=== PATIENT | female | born 1945 | race Caucasian/White ===

== ENCOUNTER → 2017-03-31 | Outpatient (CLI) | payer OTHER ==
[~2017-03-31] MED LIST: IOPAMIDOL (ISOVUE 370) 100 ML BTL IV ONE
== END ==
LOC: FIMAGING 15:53
PROVIDERS: ATTEND Thoracic Surgery (Cardiothoracic Vascular Surgery)
DX: I25.10 Atherosclerotic heart disease of native coronary artery without angina pectoris (principal); I51.7 Cardiomegaly; E04.1 Nontoxic single thyroid nodule; I65.22 Occlusion and stenosis of left carotid artery; I77.9 Disorder of arteries and arterioles, unspecified; I77.1 Stricture of artery; R91.8 Other nonspecific abnormal finding of lung field
CPT/HCPCS: 70498; 71010; 93880; Q9967

== ENCOUNTER 2017-04-01 07:15 | Inpatient (IN) | payer OTHER ==
[2017-04-01] MEDS ORDERED: niCARdipine/NACL 200 ML IV ONE (10:30)
[2017-04-01] MEDS ORDERED: INSULIN REGULAR HUMAN 100 UNIT in NS 100 ML IV ONE (10:30)
[2017-04-01] MEDS ORDERED: MANNITOL 20% 50 GM/250 ML BAG IV ONE (10:30)
[2017-04-01] MEDS ORDERED: VERAPAMIL 5 MG, NITROGLYCERIN 2.5 MG, HEPARIN 500 UNIT, SODIUM BICARBONATE 0.2 MEQ in L... MISC ONE (10:30)
[2017-04-01] MEDS ORDERED: NOREPINEPHRINE BITARTRATE 16 MG in NS 250 ML IV ONE (10:30)
[2017-04-01] MEDS ORDERED: PHENYLEPHRINE HCL 50 MG in NS 250 ML IV ONE (10:30)
[2017-04-01] MEDS ORDERED: ceFAZolin 2 GM/DEXTROSE 100 ML IV ONE ×2 (10:30→17:45)
[2017-04-01] MEDS ORDERED: LIDOCAINE 1% 5 ML SDV ID PRN (10:30)
[2017-04-01] MEDS ORDERED: MUPIROCIN 2% 22 GM OINT NS SCH (10:30)
[2017-04-01] MEDS ORDERED: AMINOCAPROIC ACID 5 GM/20 ML VIAL IV ONE (10:30)
[2017-04-01] MEDS ORDERED: SODIUM BICARBONATE 20 MEQ, LIDOCAINE 1% 10 ML in NORMOSOL-R 1,000 ML MISC ONE (10:30)
[2017-04-01] MEDS ORDERED: CITRATE DEXTROSE SOLN 500 ML BAG MISC ONE (10:30)
[2017-04-01] MEDS ORDERED: HEPARIN/DEXTROSE 25,000 UNIT/500 ML BAG ONE (13:49)
[2017-04-01] MEDS ORDERED: HEPARIN 10,000 UNIT/10 ML MDV IVP ONE (13:59)
[2017-04-01] MEDS ORDERED: HEPARIN 10,000 UNIT/10 ML MDV IVP PRN (13:59)
[2017-04-01] MEDS ORDERED: HEPARIN/DEXTROSE 500 ML IV SCH (14:00)
[2017-04-01 14:28] LABS: % IMMATURE GRANULYOCYTES 0.4 % (0.0-1.1); ABSOLUTE IMMATURE GRANULOCYTES 0.04 10^3/uL (0.00-0.10); ADD DIFF? NO; ADD MORPH? YES; ADD SCAN? NO; ATYPICAL LYMPHOCYTE FLAG 0 (0-99); FRAGMENT RBC FLAG 20 (0-99); HEMATOCRIT 44.2 % (38.0-47.0); HEMOGLOBIN 14.6 g/dL (12.6-16.3); LEFT SHIFT FLG 0 (0-99); LIPEMIA HEMOLYSIS FLAG 80 (0-99); MEAN CELL HEMOGLOBIN 27.1 pg (27.9-34.1); MEAN PLATELET VOLUME 11.1 fL (8.7-11.7); PLATELET CLUMPS FLAG 0 (0-99); PLATELET COUNT 225 10^3/uL (150-400); RED BLOOD CELL COUNT 5.39 10^6/uL (4.18-5.33)
[2017-04-01 14:32] LABS: RED CELL DISTRIBUTION WIDTH 20.7 % (11.5-15.2)
[2017-04-01 15:20] LABS: INR 1.07 (0.83-1.16); PROTIME(PATIENT) 13.8 SEC (12.0-15.0)
[2017-04-01 15:22] LABS: APTT 47.2 SEC (23.0-38.0)
[2017-04-01] MEDS: LR 1,000 ML IV SCH ×2 (15:30→17:36)
[2017-04-01 15:34] LABS: ANION GAP 12 mEq/L (8-16); CALCIUM 9.1 mg/dL (8.5-10.4); CARBON DIOXIDE 23 mEq/l (22-31); CHLORIDE 106 mEq/L (97-110); CREATININE 0.6 mg/dL (0.6-1.0); GLOMERULAR FILTRATION RATE > 60; GLUCOSE 96 mg/dL (70-100); POTASSIUM 3.8 mEq/L (3.5-5.2); SODIUM 141 mEq/L (134-144)
[2017-04-01 16:41] LABS: HYPOCHROMIA 1+; MICROCYTES 1+; POLYCHROMASIA 1+
[2017-04-01 16:42] LABS: KERATOCYTES 1+; PLATELET ESTIMATE ADEQUATE (ADEQ)
[2017-04-01] MEDS ORDERED: CEFAZOLIN 2 GM/DEXTROSE/100 ML BAG IV ONE (17:33)
--- NOTE | 2017-04-01 17:33 | PDGENHP ---
History & Physical Chief Complaint: 72 female with critical left carotid stenosis > 90%, asymptomatic History of Present Illness: in need of cabg for chf but no angina/ found to have critical bilat carotid stenoses, R>L. will proceed with left CEA prior to CABG which has been postponed. risks and options fully discussed Pertinent Past, Social, Family History: PMH: , CHF. ROS - ON 10 PT REVIEW EXCEPT HTN AND CHF. ALL: NONE. MEDS: LASIX, ALDACTONE, LISINOPRIL, ASA , PLAVIX. FAM HX: NONCONTRIB Relevant Physical Exam: ALERT, HEALTHY 72 FEMALE. HEENT: BRUIT ON LEFT, NONICTERIC, NO ADENOPATHYNECK SUPPLE. CHEST: CLEAR. COR: RR WO M. ABD SOFT WO MASSES. EXREM: FULL PULSES, FULL ROM, NO EDEMA. NEURO PHYSIOLOGIC. SKIN OK Cardiorespiratory Assessment: IMP: CRITICAL LEFT CAROTID STENOSIS, ASYMPTOMATIC / ALSO SIGNIFICANT STENOSIS ON THE RIGHT IN PT WITH WELL TREATED CHF. PLAN: LEFT CEA WITH EEG/ RISKS AND OPTIONS FULLY DISCUSSED
[2017-04-01] MEDS ORDERED: BACITRACIN ZINC 14.2 GM OINTTUBE TP ONE (17:50)
[2017-04-01] MEDS ORDERED: THROMBIN (BOVINE) 20,000 UNIT SPRAY TP ONE (17:50)
[2017-04-01] MEDS ORDERED: BUPIVACAINE 0.5% 30 ML SDV ONE (17:50)
[2017-04-01] MEDS ORDERED: PROPOFOL 200 MG/20 ML VIAL ONE (18:21)
[2017-04-01] MEDS ORDERED: MIDAZOLAM 2 MG/2 ML VIAL ONE (18:21)
[2017-04-01] MEDS ORDERED: fentaNYL 100 MCG/2 ML INJ ONE (18:21)
[2017-04-01] MEDS ORDERED: ONDANSETRON 4 MG/2 ML VIAL ONE (18:27)
[2017-04-01] MEDS ORDERED: METOCLOPRAMIDE 10 MG/2 ML VIAL ONE (18:27)
[2017-04-01] MEDS ORDERED: ROCURONIUM 50 MG/5 ML VIAL ONE (18:27)
[2017-04-01] MEDS ORDERED: PHENYLEPHRINE HCL 100 MCG/ML SYR ONE (18:44)
[2017-04-01] MEDS ORDERED: HEPARIN 10,000 UNIT/10 ML MDV ONE (18:44)
--- NOTE | 2017-04-01 19:01 | PDANEPAE ---
ANE Past Medical History - Cardiovascular History Hx Hypertension: Yes Hx Coronary Artery / Peripheral Vascular Disease: Yes Hx CHF / Valvular Disease: Yes - Pulmonary History Hx Sleep Apnea: No Sleep Apnea Screening Result - Last Documented: Positive - Endocrine History Hx Diabetes: No ANE Review of Systems Review of Systems: ANE Patient History - Allergies Allergies/Adverse Reactions: No Known Allergies Allergy (Unverified 03/31/17 17:37) - Home Medications Home Medications: Clopidogrel Bisulfate [Plavix (*)] 75 mg PO DAILY 04/01/17 [Last Taken 03/28/17] Furosemide [Lasix 40 MG (*)] 40 mg PO DAILY 04/01/17 [Last Taken 03/28/17] Lisinopril [Zestril 40 mg (*)] 40 mg PO DAILY 04/01/17 [Last Taken 03/31/17] Multivitamins [Multivitamin (*)] 1 each PO DAILY 04/01/17 [Last Taken Unknown] [place]-3 Fatty Acids [Fish Oil 1000 mg (*)] 1,000 mg PO DAILY 04/01/17 [Last Taken Unknown] Spironolactone [Aldactone 25 MG (*)] 25 mg PO BID 04/01/17 [Last Taken 03/28/17 21:00] - NPO status NPO Since - Liquids (Date): 04/01/17 NPO Since - Liquids (Time): 00:00 NPO Since - Solids (Date): 04/01/17 NPO Since - Solids (Time): 00:00 - Smoking Hx Smoking Status: Former smoker ANE Labs/Vital Signs - Labs Result Diagrams: 04/01/17 14:00 04/01/17 14:50 - Vital Signs Blood Pressure: 132/77 Heart Rate: 77 Respiratory Rate: 18 O2 Sat (%): 91 Height: 160.02 cm Weight: 53.4 kg ANE Physical Exam - Airway Mallampati Score: Class 1 Mouth exam: poor dentition, dentures - ASA Status ASA Status: III ANE Anesthesia Plan Anesthesia Plan: general endotracheal anesthesia Lines/Monitors: arterial line
[2017-04-01] MEDS ORDERED: ONDANSETRON 4 MG/2 ML VIAL IVP PRN (19:39)
[2017-04-01] MEDS ORDERED: HYDROmorphONE/DILAUDID 1 MG/ML INJ IVP PRN (19:39)
[2017-04-01] MEDS ORDERED: OXYCODONE/APAP 5/325 TAB PO PRN (19:39)
[2017-04-01] MEDS ORDERED: ENALAPRILAT DIHYDRATE 1.25 MG/ML VIAL IVP PRN (19:40)
[2017-04-01] MEDS ORDERED: PROTAMINE SULFATE 50 MG/5 ML VIAL IVP ONE (19:53)
[2017-04-01] MEDS ORDERED: SUGAMMADEX SODIUM 200 MG/2 ML VIAL IVP ONE (20:01)
[2017-04-01] MEDS ORDERED: NALOXONE HCL 0.4 MG/ML INJ IVP PRN (20:34)
[2017-04-01] MEDS ORDERED: fentaNYL 100 MCG/2 ML INJ IVP PRN (20:34)
[2017-04-01] MEDS ORDERED: LR 500 ML IV PRN (20:34)
--- NOTE | 2017-04-01 20:35 | POSTANESTH ---
Post Anesthetic Evaluation Cardiovascular Status: Normal, Stable Respiratory Status: Normal, Stable Level of Consciousness/Mental Status: Can Participate in Eval Pain Control: Adequate, Prn Tx Ordered Nausea/Vomiting Control: Adequate, Prn Tx Ordered Complications Possibly Related to Anesthesia: None Noted
[2017-04-01] MEDS: DOCUSATE SODIUM 100 MG CAP PO SCH (21:34)
[2017-04-01] MEDS ORDERED: D5W 1/2 NS W/ 20 KCl/L 1,000 ML IV SCH (21:45)
[2017-04-02 05:37] LABS: HEMATOCRIT 39.6 % (38.0-47.0); HEMOGLOBIN 12.9 g/dL (12.6-16.3)
[2017-04-02 05:45] LABS: ANION GAP 8 mEq/L (8-16); CARBON DIOXIDE 25 mEq/l (22-31); CHLORIDE 106 mEq/L (97-110); CREATININE 0.6 mg/dL (0.6-1.0); GLOMERULAR FILTRATION RATE > 60; GLUCOSE 105 mg/dL (70-100); SODIUM 139 mEq/L (134-144)
[2017-04-02 06:02] VITALS: O2SAT 93
--- NOTE | 2017-04-02 06:05 | GOP ---
[f rep st] OPERATIVE REPORT DATE OF OPERATION: 04/01/2017 SURGEON: Zachariah Miller MD PLASTIC PANEL INSTALLER: Julio Bliss MD. and Jamila Villatoro, PAC. ANESTHESIOLOGIST: Sarmda Elder MD. PREOPERATIVE DIAGNOSIS: Critical left carotid stenosis. POSTOPERATIVE DIAGNOSIS: Critical left carotid stenosis plus benign cervical node. PROCEDURE PERFORMED: 1. Left carotid endarterectomy with EEG monitoring and patch angioplasty. 2. Cervical node biopsy. FINDINGS: Patient was found to have a 1.5 cm node in the jugulodigastric area, which was sent out fo r evaluation, but appeared to be a reactive node. She had a very tight stenosis of the origin of the left internal carotid artery with a large calcified plaque. She had reasonable backflow from the in ternal carotid artery and no EEG changes during the procedure. She awoke neurologically intact. ESTIMATED BLOOD LOSS: Was less than 50 cc. DESCRIPTION OF PROCEDURE: The patient was taken to the operating room where she received satisfactor y general endotracheal anesthesia by Dr. Elder. She was systemically heparinized prior to induction of anesthesia. She was prepped and draped in usual sterile fashion with continuous EEG monitoring. Incision was made along the anterior border of the sternocleidomastoid muscle. Dissection was christin d down through the platysma and subcutaneous tissue into the cervical fascia. Common facial vein was identified, multiply ligated and divided, exposing the carotid arterial tree. Dissection extended u p along the internal carotid artery. The digastric tendon was divided for adequate superior exposure . The internal carotid, external carotid and common carotid arteries were all dissected free and con trolled with vessel loops. After adequate exposure was achieved, additional heparin was given and af ter adequate circulation time, the vessels were occluded with vessel loops. Arteriotomy was then mad e in the common carotid artery, extended up through the calcified plaque and into a good normal porti on of the internal carotid artery. Good backflow was present. There were no EEG changes. Expeditio us endarterectomy was then done, removing the plaque from the origin of the internal carotid and exte rnal carotid arteries. It was removed. All debris was removed. All vessels were back flushed. A G ore-Kennedy patch was placed over the arteriotomy site and sutured in place with a running Hemashield 7 s uture. Flow was first established through the external carotid artery and then through the internal carotid. Suture line had some needle hole bleeding which responded to reversal of the heparin with p rotamine and some topical spray thrombin. Hemostasis was achieved and the wound was irrigated and it was then closed in layers using 3-0 Vicryl for the cervical fascia and 3-0 Vicryl for the platysma a nd subcutaneous tissue and a 3-0 Monocryl subcuticular stitch for the skin. All layers were infiltra nathalie with 0.25% Marcaine and sprayed with topical thrombin. A couple of additional Prolene interrupte d sutures were placed in the skin for control of small skin bleeders. The wound was dressed. She aw janeth neurologically intact, moving all extremities and responding to commands, was [place] [facility] [place] in satisfactory condition. There were no complications. /[id number]/MODL
[2017-04-02 07:33] VITALS: PULSE 87; RESP 16
[2017-04-02] MEDS: DOCUSATE SODIUM 100 MG CAP PO SCH (08:31)
[2017-04-02] MEDS ORDERED: MULTIVITAMINS 1 EACH TAB PO SCH (09:00)
[2017-04-02] MEDS ORDERED: LISINOPRIL 40 MG TAB PO SCH (09:00)
[2017-04-02] MEDS ORDERED: OMEGA-3 FATTY ACIDS 1,000 MG CAP PO SCH (09:00)
[2017-04-02] MEDS ORDERED: ASPIRIN EC 81 MG TAB PO SCH (09:00)
--- NOTE | 2017-04-02 09:15 | SOAPPROG ---
SOAP Progress Note Assessment/Plan: Assessment: 72yo female POD #1 s/p L CEA with patch angioplasty and cervical LN biopsy. Recovering well. Regular diet Ambulate Pain control May shower Leave wound to air Resume home meds of Plavix, lasix, and spironolactone tomorrow Dispo: to home today S: No complaints today. Reports minimal pain. Tolerating diet. O: Lying in bed NAD MMM Lungs CTAB, no increased WOB RRR, No bruits CN II-XII intact Incision C/D/I with suture and skin glue in place Objective: Vital Signs Temp Pulse Resp BP Pulse Ox 37.2 C 87 16 141/84 H 93 04/02/17 07:32 04/02/17 07:32 04/02/17 07:32 04/02/17 07:32 04/02/17 07:32 Laboratory Results 04/02/17 05:25 04/02/17 05:25 04/01/17 04/02/17 04/03/17 05:59 05:59 05:59 Intake Total 1454 Output Total 50 Balance 1404 PT 13.8 SEC (12.0-15.0) 04/01/17 14:50 INR 1.07 (0.83-1.16) 04/01/17 14:50 ICD10 Worksheet Patient Problems: Problems Problem Status Onset CAD, multiple vessel Acute Carotid artery disease Acute Diabetes mellitus Acute CHF (NYHA class II, ACC/AHA stage C) Chronic Emphysema/COPD Chronic Ischemic cardiomyopathy Chronic Tobacco abuse Chronic
[2017-04-02 13:12] VITALS: BP 136/78; TEMP 98.6
[2017-04-02] MEDS ORDERED: PNEUMOC 13-VAL CONJ-DIP CRM/PF 0.5 ML SYR IM ONE (13:22)
[2017-04-02] MEDS ORDERED: FLU VACC QS 2017-18 (3YR+)/PF 0.5 ML SYR (FLUARIX QUAD) IM ONE (13:22)
== END 2017-04-02 13:45 | disposition home or self-care (01) | DRG 39 ==
LOC: UNDOADMIN 10:18 → F2W 10:18 → F2N 10:49
PROVIDERS: ADMIT Surgery; ATTEND Surgery
PROC: 03CL0ZZ Extirpation of Matter from Left Internal Carotid Artery, Open Approach (ICD-10-PCS; principal; 2017-04-01 15:30)
PROC: 07B20ZX Excision of Left Neck Lymphatic, Open Approach, Diagnostic (ICD-10-PCS; principal; 2017-04-01 15:30)
DX: I65.22 Occlusion and stenosis of left carotid artery (principal); I50.9 Heart failure, unspecified; I11.0 Hypertensive heart disease with heart failure; R59.9 Enlarged lymph nodes, unspecified; Z79.02 Long term (current) use of antithrombotics/antiplatelets; Z23 Encounter for immunization
CPT/HCPCS: C1768; G0008; G0009; J0690; J1644; J1815; J2250; J2370; J2405; J2704; J2720; J2765; J3010

== ENCOUNTER 2017-04-29 06:09 | Inpatient (IN) | payer OTHER ==
[~2017-04-29 06:09] MED LIST changes: -IOPAMIDOL (ISOVUE 370) 100 ML BTL IV ONE; +ceFAZolin 2 GM/DEXTROSE 100 ML IV ONE
[2017-04-29] MEDS ORDERED: LIDOCAINE 1% 2 ML INJ ID PRN (06:48)
[2017-04-29] MEDS ORDERED: LR 1,000 ML IV ONE (06:48)
[2017-04-29] MEDS ORDERED: BACITRACIN ZINC 14.2 GM OINTTUBE TP ONE (07:21)
[2017-04-29] MEDS ORDERED: BUPIVACAINE 0.5% 30 ML SDV ONE (07:22)
--- NOTE | 2017-04-29 07:29 | PDHPUP ---
History & Physical Update H&P update statement: This history and physical update is based on an assessment of the patient which was completed after admission or registration (within 24 hours), but prior to the surgery/procedure. H&P update: H&P reviewed & patient examined, no change in patient's condition since H&P completed
--- NOTE | 2017-04-29 07:38 | PDANEPAE ---
ANE History of Present Illness 72 yo F with 70% stenosis RCA here for CEA ANE Past Medical History - Cardiovascular History Hx Hypertension: Yes Hx Coronary Artery / Peripheral Vascular Disease: Yes Hx CHF / Valvular Disease: Yes - Pulmonary History Hx COPD: Yes Hx Asthma/Reactive Airway Disease: No Hx Recent Upper Respiratory Infection: No Hx Oxygen in Use at Home: No Hx Sleep Apnea: No Sleep Apnea Screening Result - Last Documented: Negative - Neurologic History Hx Cerebrovascular Accident: No Hx Seizures: No Hx Dementia: No - Endocrine History Hx Diabetes: No - Renal History Hx Renal Disorders: No - Liver History Hx Hepatic Disorders: No - Neurological & Psychiatric Hx Hx Neurological and Psychiatric Disorders: No - Cancer History Hx Cancer: No - Congenital Disorder History Hx Congenital Disorders: No - GI History Hx Gastrointestinal Disorders: No - Other Health History Other Health History: NEG - Chronic Pain History Chronic Pain: No - Surgical History Prior Surgeries: L ENDARTERECTOMY. X2 ANE Review of Systems Review of Systems: - Exercise capacity Exercise capacity: limited by disability METS (RN): 4 METS ANE Patient History - Allergies Allergies/Adverse Reactions: No Known Allergies Allergy (Unverified 03/31/17 17:37) - Home Medications Home medications: home medication list seen and reviewed Home Medications: Lisinopril [Zestril 40 mg (*)] 40 mg PO DAILY 04/01/17 [Last Taken 04/28/17 10: 00] Multivitamins [Multivitamin (*)] 1 each PO DAILY 04/01/17 [Last Taken 04/28/17 10:00] [place]-3 Fatty Acids [Fish Oil 1000 mg (*)] 1,000 mg PO DAILY 04/01/17 [Last Taken 04/28/17 10:00] Ascorbic Acid [Vitamin C 500 mg (*)] 1,000 mg PO DAILY 04/28/17 [Last Taken 04/06 10:00] Atorvastatin Calcium [Lipitor 40 mg (*)] 40 mg PO DAILY 04/28/17 [Last Taken 04/06 10:00] Carvedilol [Coreg (*)] 12.5 mg PO BIDMEAL 04/28/17 [Last Taken 04/28/17 17:30] Cholecalciferol Vit D3 [Vitamin D3 (*)] 1,000 units PO DAILY 04/28/17 [Last Taken 04/28/17 10:00] Cyanocobalamin [Vitamin B12 (*)] 1,000 mcg PO DAILY 04/28/17 [Last Taken 10:00] Herbals/Supplements -Info Only 1 ea PO DAILY 04/28/17 [Last Taken 04/28/17 10:00 ] - NPO status NPO Status: no food or drink >8 hours - Anes Hx Anes Hx: no prior problems - Smoking Hx Smoking Status: Former smoker - Alcohol Use Alcohol Use: None - Family Anes Hx Family Anes Hx: none Family Hx Anesthesia Complications: NEG ANE Labs/Vital Signs - Vital Signs Vital Signs: reviewed preoperatively; see RN documention for details Height: 157.48 cm Weight: 52.163 kg ANE Physical Exam - Airway Neck exam: FROM Mallampati Score: Class 3 Mouth exam: poor dentition, dentures Mouth image: 1 - dentures 2 - missing 3 - missing - Pulmonary Pulmonary: no respiratory distress - Cardiovascular Cardiovascular: regular rate and rhythym - ASA Status ASA Status: III ANE Anesthesia Plan Anesthesia Plan: general endotracheal anesthesia Lines/Monitors: arterial line
[2017-04-29] MEDS ORDERED: fentaNYL 100 MCG/2 ML INJ ONE (07:49)
[2017-04-29] MEDS ORDERED: PROPOFOL 200 MG/20 ML VIAL ONE ×2 (07:50)
[2017-04-29] MEDS ORDERED: KETAMINE 100 MG/10 ML SYR ONE (07:51)
[2017-04-29] MEDS ORDERED: REMIFENTANIL HCL 1 MG VIAL ONE (07:51)
[2017-04-29] MEDS ORDERED: PROPOFOL/EMULSION 500 MG/50 ML BOTTLE IV ONE (07:52)
[2017-04-29] MEDS ORDERED: ROCURONIUM 100 MG/10 ML VIAL ONE (07:55)
[2017-04-29] MEDS ORDERED: LIDOCAINE 2% 100 MG/5 ML SYR ONE (07:56)
[2017-04-29] MEDS ORDERED: PHENYLEPHRINE HCL 100 MCG/ML SYR ONE ×2 (08:39)
[2017-04-29] MEDS ORDERED: DEXAMETHASONE 4 MG/ML VIAL ONE (09:16)
[2017-04-29] MEDS ORDERED: ONDANSETRON 4 MG/2 ML VIAL ONE (09:16)
[2017-04-29] MEDS ORDERED: fentaNYL 100 MCG/2 ML INJ IVP PRN (09:27)
[2017-04-29] MEDS ORDERED: NALOXONE HCL 0.4 MG/ML INJ IVP PRN (09:27)
[2017-04-29] MEDS ORDERED: ONDANSETRON 4 MG/2 ML VIAL IVP PRN ×2 (09:27→09:57)
[2017-04-29] MEDS ORDERED: HYDROmorphONE/DILAUDID 1 MG/ML INJ IVP PRN ×2 (09:27→09:57)
[2017-04-29] MEDS ORDERED: PROTAMINE SULFATE 50 MG/5 ML VIAL IVP ONE (09:30)
[2017-04-29] MEDS ORDERED: THROMBIN (BOVINE) 5,000 UNIT VIAL TP ONE (09:37)
[2017-04-29] MEDS ORDERED: OXYCODONE/APAP 5/325 TAB PO PRN (09:57)
--- NOTE | 2017-04-29 09:57 | POSTOPPROG ---
Post Op Note Date of Operation: 04/29/17 Surgeon: Zachariah Miller Supervisor Maintenance: Jamila Villatoro Anesthesiologist: Jamie Yeager Anesthesia: GET(General Endotracheal) Pre-op Diagnosis: critical R carotid stenosis Post-op Diagnosis: same Procedure: R CEA c EEG monitoring and patch closure Findings: tight calcified plaque, small vessels Inf/Abcess present in the surg proc area at time of surgery?: No EBL: 50-100 Complications: none Specimen(s): plaque to pathology
[2017-04-29] MEDS ORDERED: ENALAPRILAT DIHYDRATE 1.25 MG/ML VIAL IVP PRN (10:00)
[2017-04-29] MEDS: D5W 1/2 NS 1,000 ML IV SCH ×2 (11:29→21:48)
[2017-04-29] MEDS ORDERED: CARVEDILOL 6.25 MG TAB PO SCH (18:00)
--- NOTE | 2017-04-29 19:53 | SOAPPROG ---
SOLIV Progress Note Assessment/Plan: Assessment: POSTOP ALERT AND NEUROLOGICALLY INTACT / WOUND OKAY / VITAL SIGNS STABLE Plan: HOME IN THE A.M. 04/29/17 19:52 Objective: Vital Signs Temp Pulse Resp BP Pulse Ox 37.0 C 68 20 111/64 94 04/29/17 11:19 04/29/17 18:00 04/29/17 18:00 04/29/17 18:00 04/29/17 18:00 04/28/17 04/29/17 04/30/17 05:59 05:59 05:59 Intake Total 2078 Output Total 415 Balance 1663 ICD10 Worksheet Patient Problems: Problems Problem Status Onset CAD, multiple vessel Acute Carotid artery disease Acute Diabetes mellitus Acute CHF (NYHA class II, ACC/AHA stage C) Chronic Emphysema/COPD Chronic Ischemic cardiomyopathy Chronic Tobacco abuse Chronic
--- NOTE | 2017-04-29 21:32 | POSTANESTH ---
Post Anesthetic Evaluation Cardiovascular Status: Normal, Stable, Similar to Pre-Op Cond Respiratory Status: Normal, Stable, Similar to Pre-op Cond. Level of Consciousness/Mental Status: Can Participate in Eval, Alert and Oriented Pain Control: Adequate, Prn Tx Ordered Nausea/Vomiting Control: Adequate, Prn Tx Ordered Complications Possibly Related to Anesthesia: None Noted
[2017-04-30 04:51] LABS: HEMATOCRIT 34.2 % (38.0-47.0); HEMOGLOBIN 10.9 g/dL (12.6-16.3)
[2017-04-30] MEDS: D5W 1/2 NS 1,000 ML IV SCH (04:55)
[2017-04-30 05:06] LABS: ANION GAP 8 mEq/L (8-16); CALCIUM 8.9 mg/dL (8.5-10.4); CARBON DIOXIDE 27 mEq/l (22-31); CHLORIDE 108 mEq/L (97-110); CREATININE 0.6 mg/dL (0.6-1.0); GLOMERULAR FILTRATION RATE > 60; GLUCOSE 129 mg/dL (70-100); SODIUM 143 mEq/L (134-144)
[2017-04-30 07:23] VITALS: BP 139/80; PULSE 73; RESP 14; TEMP 98.4
[2017-04-30 08:41] VITALS: O2SAT 76
[2017-04-30] MEDS ORDERED: ATORVASTATIN CALCIUM 40 MG TAB PO SCH (09:00)
[2017-04-30] MEDS ORDERED: ASPIRIN EC 81 MG TAB PO SCH (09:00)
[2017-04-30] MEDS ORDERED: LISINOPRIL 40 MG TAB PO SCH (09:00)
--- NOTE | 2017-04-30 09:05 | SOAPPROG ---
SOAP Progress Note Assessment/Plan: Assessment/Plan: 72 Y F s/p CEA, POD#1. Doing well. Neuro exam intact. BP stable. Wounds clean and intact. I called pt's security services specialist's office, Dr. Roberts in [place], re: plavix and coreg. Pt doesn't recall being on coreg. Will have her contact their office as they say Dr. Roberts does have this listed as a medicine for her. Dr. Roberts does not have the patient on plavix--has been on this for her carotid disease. Will d /c plavix and change to ASA 325mg. S: Minimal pain. Eating fine. Denies weakness. Feels ready to go home. O: alert, nad tongue midline, pupils equal, round inc cdi ctab rrr abd soft neuro grossly intact 04/30/17 08:54 Objective: Vital Signs Temp Pulse Resp BP Pulse Ox 36.9 C 73 14 139/80 H 76 L 04/30/17 07:22 04/30/17 07:22 04/30/17 07:22 04/30/17 07:22 04/30/17 08:40 Laboratory Results 04/30/17 04:42 04/30/17 04:42 04/29/17 04/30/17 05/01/17 05:59 05:59 05:59 Intake Total 3328 Output Total 415 Balance 2913 ICD10 Worksheet Patient Problems: Problems Problem Status Onset CAD, multiple vessel Acute Carotid artery disease Acute Diabetes mellitus Acute CHF (NYHA class II, ACC/AHA stage C) Chronic Emphysema/COPD Chronic Ischemic cardiomyopathy Chronic Tobacco abuse Chronic
--- NOTE | 2017-04-30 11:39 | ASDISCHSUM ---
Discharge Information Plan Status:Home with No Needs Medically Cleared to Leave:04/30/2017 Discharge Date:04/30/2017 11:33 AM CM D/C Disposition:Home, Routine, Self-Care ADT D/C Disposition:Home, Routine, Self-Care Projected Discharge Date:04/30/2017 11:33 AM Transportation at D/C:Family Discharge Delay Reason: Follow-Up Date:04/30/2017 11:33 AM Discharge Slot: Final Diagnosis: Placement Information Patient Contact Information Contact Name:ELLY Relationship:Eligio Address: Work Phone: City: [facility] Phone: State/[place] Code: Email: Financial Information Financial Class:[facility] Primary Plan Desc:MEDICARE INPATIENT Primary Plan Number:[id number] Secondary Plan Desc: Secondary Plan Number: Assessment Information Intervention Information
[2017-05-01] MEDS ORDERED: ENOXAPARIN 40 MG/0.4 ML SYR SC SCH (09:00)
== END 2017-04-30 11:33 | disposition home or self-care (01) | DRG 39 ==
LOC: F3N 06:09 → F2N 11:03 → F2W 21:21
PROVIDERS: ADMIT Surgery; ATTEND Surgery
PROC: 03CK0ZZ Extirpation of Matter from Right Internal Carotid Artery, Open Approach (ICD-10-PCS; principal; 2017-04-29 08:00)
DX: I65.21 Occlusion and stenosis of right carotid artery (principal); I25.10 Atherosclerotic heart disease of native coronary artery without angina pectoris; I10 Essential (primary) hypertension; J44.9 Chronic obstructive pulmonary disease, unspecified; I50.9 Heart failure, unspecified; Z79.02 Long term (current) use of antithrombotics/antiplatelets
CPT/HCPCS: C1768; J0690; J1100; J1644; J2001; J2370; J2405; J2704; J2720; J3010

== ENCOUNTER 2017-05-23 05:39 | Inpatient (IN) | payer OTHER ==
[2017-05-23] MEDS ORDERED: SODIUM BICARBONATE 20 MEQ, LIDOCAINE 1% 10 ML in NORMOSOL-R 1,000 ML MISC ONE (06:00)
[2017-05-23] MEDS ORDERED: PHENYLEPHRINE HCL 50 MG in NS 250 ML IV ONE (06:00)
[2017-05-23] MEDS ORDERED: INSULIN REGULAR HUMAN 100 UNIT in NS 100 ML IV ONE (06:00)
[2017-05-23] MEDS ORDERED: niCARdipine/NACL 200 ML IV SCH (06:00)
[2017-05-23] MEDS ORDERED: AMINOCAPROIC ACID 5 GM/20 ML VIAL IV ONE (06:00)
[2017-05-23] MEDS ORDERED: CITRATE DEXTROSE SOLN 500 ML BAG MISC ONE (06:00)
[2017-05-23] MEDS ORDERED: ceFAZolin 2 GM/SWFI 2 GM/20 ML SYR IVP ONE (06:00)
[2017-05-23] MEDS ORDERED: MANNITOL 25% 12.5 GM/50 ML VIAL IVP ONE (06:00)
[2017-05-23] MEDS ORDERED: MUPIROCIN 2% 22 GM OINT NS ONE (06:00)
[2017-05-23] MEDS ORDERED: NOREPINEPHRINE BITARTRATE 16 MG in NS 250 ML IV ONE (06:00)
[2017-05-23] MEDS ORDERED: VERAPAMIL 5 MG, NITROGLYCERIN 2.5 MG, HEPARIN 500 UNIT, SODIUM BICARBONATE 0.2 MEQ in L... MISC ONE (06:00)
[2017-05-23] MEDS ORDERED: MILRINONE/DEXTROSE/100 ML BAG IV ONE (06:18)
[2017-05-23] MEDS ORDERED: CALCIUM CHLORIDE 1 GM/10 ML INJ ONE ×2 (06:18→06:31)
[2017-05-23] MEDS ORDERED: PROTAMINE SULFATE 50 MG/5 ML VIAL IVP ONE (06:18)
[2017-05-23] MEDS ORDERED: POTASSIUM Cl (KCl) 20 MEQ/50 ML BAG IV ONE (06:19)
[2017-05-23] MEDS ORDERED: DOPamine/DEXTROSE/250 ML BAG IV ONE (06:19)
[2017-05-23] MEDS ORDERED: niCARdipine/NACL/200 ML BAG IV ONE (06:19)
[2017-05-23] MEDS ORDERED: AMIODARONE HCL 150 MG/3 ML VIAL ONE ×2 (06:19→06:31)
[2017-05-23] MEDS ORDERED: ADENOSINE 6 MG/2 ML VIAL ONE (06:19)
[2017-05-23] MEDS ORDERED: AMINOCAPROIC ACID 5 GM/20 ML VIAL ONE ×2 (06:19→06:31)
[2017-05-23] MEDS ORDERED: NA BICARBONATE 50 MEQ/50 ML VIAL ONE (06:19)
[2017-05-23] MEDS ORDERED: HEPARIN 10,000 UNIT/10 ML MDV ONE ×2 (06:20→06:32)
[2017-05-23] MEDS ORDERED: ceFAZolin 1 GM VIAL ONE (06:20)
[2017-05-23] MEDS ORDERED: MINERAL OIL 10 ML VIAL ONE (06:26)
[2017-05-23] MEDS ORDERED: PAPAVERINE HCL 60 MG/2 ML SDV ONE (06:27)
[2017-05-23] MEDS ORDERED: VERAPAMIL 5 MG/2 ML VIAL ONE (06:27)
[2017-05-23] MEDS ORDERED: ALBUMIN 5% 250 ML BOTTLE IV ONE (06:30)
[2017-05-23] MEDS ORDERED: LIDOCAINE 2% 100 MG/5 ML SYR ONE (06:31)
[2017-05-23] MEDS ORDERED: methylPREDNISolone SOD SUCC 1 GM/8 ML VIAL ONE (06:31)
[2017-05-23] MEDS ORDERED: CITRATE DEXTROSE SOLN 500 ML BAG ONE (06:31)
[2017-05-23] MEDS ORDERED: MAGNESIUM SULFATE 1 GM/2 ML VIAL ONE (06:31)
--- NOTE | 2017-05-23 06:35 | PDGENHP ---
History and Physical - Chief Complaint CAD - History of Present Illness 71F with severe CAD here for surgical revascularization. Pt is s/p recent b/l CEA procedures with Dr. Miller in anticipation of today's procedures and is stable from that standpoint. Pt denies weakness, CP, SOB, abd pain, or LE edema. History Information - Allergies/Home Medication List Allergies/Adverse Reactions: No Known Allergies Allergy (Verified 05/23/17 06:14) Home Medications: Lisinopril [Zestril 40 mg (*)] 40 mg PO DAILY 04/01/17 [Last Taken 05/22/17 10: 00] Multivitamins [Multivitamin (*)] 1 each PO DAILY 04/01/17 [Last Taken 05/16/17] [place]-3 Fatty Acids [Fish Oil 1000 mg (*)] 1,000 mg PO DAILY 04/01/17 [Last Taken 05/16/17] Ascorbic Acid [Vitamin C 500 mg (*)] 1,000 mg PO DAILY 04/28/17 [Last Taken ] Atorvastatin Calcium [Lipitor 40 mg (*)] 40 mg PO DAILY 04/28/17 [Last Taken ] Carvedilol [Coreg (*)] 12.5 mg PO BIDMEAL 04/28/17 [Last Taken 05/22/17] Cholecalciferol Vit D3 [Vitamin D3 (*)] 1,000 units PO DAILY 04/28/17 [Last Taken 05/16/17] Cyanocobalamin [Vitamin B12 (*)] 1,000 mcg PO DAILY 04/28/17 [Last Taken ] Herbals/Supplements -Info Only 1 ea PO DAILY 04/28/17 [Last Taken 05/16/17] I have personally reviewed and updated: medical history, social history, surgical history - Past Medical History coronary artery disease, CHF, hypertension - Surgical History Additional surgical history: BL CEA - Social History Smoking Status: Former smoker Review of Systems Review of Systems: ROS: 10pt was reviewed & negative except for what was stated in HPI & below Physical Exam Physical Exam: Temp Pulse Resp BP Pulse Ox 36.8 C 77 16 192/121 H 89 L 05/23/17 06:18 05/23/17 06:18 05/23/17 06:18 05/23/17 06:18 05/23/17 06:18 Constitutional: no apparent distress, appears nourished, not in pain Eyes: anicteric sclera Ears, Nose, Mouth, Throat: other (BL neck with well-healed CEA wounds) Cardiovascular: regular rate and rhythym, carotid bruit (Trace BLE) Respiratory: no respiratory distress Gastrointestinal: soft, non-tender abdomen Skin: warm, normal color Musculoskeletal: full muscle strength Neurologic: AAOx3 Psychiatric: interacting appropriately, not anxious, not encephalopathic, thought process linear Lab Data & Imaging Review Patient ABO/Rh O POSITIVE 05/19/17 12:21 Antibody Screen NEGATIVE 05/19/17 12:21 All other labs reviewed Visualized and Interpreted Chest x-ray results: Yes Chest X-Ray results: no infiltrate Assessment & Plan Assessment: 72F with severe CAD Plan: CABG this morning with Dr. Worley. Consents on chart.
[2017-05-23] MEDS ORDERED: MIDAZOLAM 2 MG/2 ML VIAL IVP ONE (06:58)
--- NOTE | 2017-05-23 06:58 | PDANEPAE ---
ANE History of Present Illness 72 yo for cabg ANE Past Medical History - Cardiovascular History Hx Hypertension: Yes Hx Arrhythmias: No Hx Chest Pain: No Hx Coronary Artery / Peripheral Vascular Disease: Yes Hx CHF / Valvular Disease: Yes Hx Palpitations: No - Pulmonary History Hx COPD: No Hx Asthma/Reactive Airway Disease: No Hx Recent Upper Respiratory Infection: No Hx Oxygen in Use at Home: No Hx Sleep Apnea: No Sleep Apnea Screening Result - Last Documented: Negative - Neurologic History Hx Cerebrovascular Accident: No Hx Seizures: No Hx Dementia: No - Endocrine History Hx Diabetes: No - Renal History Hx Renal Disorders: No - Liver History Hx Hepatic Disorders: No - Neurological & Psychiatric Hx Hx Neurological and Psychiatric Disorders: No - Cancer History Hx Cancer: No - Congenital Disorder History Hx Congenital Disorders: No - GI History Hx Gastrointestinal Disorders: No - Other Health History Other Health History: NEG - Chronic Pain History Chronic Pain: No - Surgical History Prior Surgeries: ALMA CAROTID ENDARTERECTOMY 04/29/2017. X2 ANE Review of Systems Review of Systems: - Exercise capacity METS (RN): 4 METS ANE Patient History - Allergies Allergies/Adverse Reactions: No Known Allergies Allergy (Verified 05/23/17 06:14) - Home Medications Home medications: home medication list seen and reviewed Home Medications: Lisinopril [Zestril 40 mg (*)] 40 mg PO DAILY 04/01/17 [Last Taken 05/22/17 10: 00] Multivitamins [Multivitamin (*)] 1 each PO DAILY 04/01/17 [Last Taken 05/16/17] [place]-3 Fatty Acids [Fish Oil 1000 mg (*)] 1,000 mg PO DAILY 04/01/17 [Last Taken 05/16/17] Ascorbic Acid [Vitamin C 500 mg (*)] 1,000 mg PO DAILY 04/28/17 [Last Taken ] Atorvastatin Calcium [Lipitor 40 mg (*)] 40 mg PO DAILY 04/28/17 [Last Taken ] Carvedilol [Coreg (*)] 12.5 mg PO BIDMEAL 04/28/17 [Last Taken 05/22/17] Cholecalciferol Vit D3 [Vitamin D3 (*)] 1,000 units PO DAILY 04/28/17 [Last Taken 05/16/17] Cyanocobalamin [Vitamin B12 (*)] 1,000 mcg PO DAILY 04/28/17 [Last Taken ] Herbals/Supplements -Info Only 1 ea PO DAILY 04/28/17 [Last Taken 05/16/17] - NPO status NPO Status: no food or drink >8 hours NPO Since - Liquids (Date): 05/22/17 NPO Since - Liquids (Time): 22:00 NPO Since - Solids (Date): 05/22/17 NPO Since - Solids (Time): 18:00 - Smoking Hx Smoking Status: Former smoker - Family Anes Hx Family Hx Anesthesia Complications: NEG ANE Labs/Vital Signs - Vital Signs Blood Pressure: 192/121 Heart Rate: 77 Respiratory Rate: 16 O2 Sat (%): 89 Height: 5 ft 3 in Weight: 54.431 kg ANE Physical Exam - Airway Neck exam: FROM Mallampati Score: Class 2 - Pulmonary Pulmonary: no respiratory distress - Cardiovascular Cardiovascular: regular rate and rhythym - ASA Status ASA Status: IV ANE Anesthesia Plan Anesthesia Plan: general endotracheal anesthesia Lines/Monitors: arterial line, central line, ROSALIO
[2017-05-23] MEDS ORDERED: PROPOFOL/EMULSION 500 MG/50 ML BOTTLE IV ONE (07:11)
[2017-05-23] MEDS ORDERED: REMIFENTANIL HCL 1 MG VIAL ONE (07:11)
[2017-05-23] MEDS ORDERED: fentaNYL 100 MCG/2 ML INJ ONE (07:11)
[2017-05-23] MEDS ORDERED: ROCURONIUM 100 MG/10 ML VIAL ONE (07:14)
[2017-05-23] MEDS ORDERED: DEXMEDETOMIDINE IN 0.9 % NACL 100 ML IV SCH (08:00)
[2017-05-23] MEDS ORDERED: MAGNESIUM SULF 2 GM/WATER 50 ML BAG IV ONE (11:37)
[2017-05-23] MEDS ORDERED: ONDANSETRON DISINTEGRATING 4 MG TAB PO PRN (11:51)
[2017-05-23] MEDS ORDERED: MAGNESIUM SULF 2 GM/WATER 50 ML IV ONE (11:51)
[2017-05-23] MEDS ORDERED: ACETAMINOPHEN 325 MG TAB PO PRN (11:51)
[2017-05-23] MEDS ORDERED: D50W 25 GM/50 ML SYR IVP PRN (11:51)
[2017-05-23] MEDS ORDERED: MEPERIDINE 25 MG/ML SYR IVP PRN (11:51)
[2017-05-23] MEDS ORDERED: METOCLOPRAMIDE 10 MG/2 ML VIAL IVP PRN (11:51)
[2017-05-23] MEDS ORDERED: POTASSIUM Cl (KCl) 50 ML IV PRN (11:51)
[2017-05-23] MEDS ORDERED: LACTULOSE 20 GM/30 ML UDCUP PO PRN (11:51)
[2017-05-23] MEDS ORDERED: POLYETHYLENE GLYCOL 3350 17 GM PKT PO PRN (11:51)
[2017-05-23] MEDS ORDERED: ONDANSETRON 4 MG/2 ML VIAL IVP PRN (11:51)
[2017-05-23] MEDS ORDERED: CEPACOL LOZENGE PO PRN (11:51)
[2017-05-23] MEDS ORDERED: BISACODYL 10 MG SUPP PR PRN (11:51)
[2017-05-23] MEDS ORDERED: MAGNESIUM HYDROXIDE 30 ML UDCUP PO PRN (11:51)
[2017-05-23] MEDS ORDERED: SODIUM CL NASAL 45 ML BTL EACHNARE PRN (11:51)
[2017-05-23] MEDS ORDERED: PANTOPRAZOLE SODIUM 40 MG VIAL IVP ONE (11:51)
[2017-05-23] MEDS ORDERED: ACETAMINOPHEN 650 MG SUPP PR PRN (11:51)
[2017-05-23] MEDS ORDERED: NS 1,000 ML IV SCH (12:00)
[2017-05-23] MEDS ORDERED: INSULIN REGULAR HUMAN 100 UNIT in NS 100 ML IV SCH (12:00)
[2017-05-23] MEDS ORDERED: ALBUTEROL 3 ML DEYVIAL ONE (12:04)
--- NOTE | 2017-05-23 12:13 | POSTANESTH ---
Post Anesthetic Evaluation Cardiovascular Status: Normal, Stable Respiratory Status: Other, See Comment Level of Consciousness/Mental Status: Unconscious Pain Control: Adequate, Prn Tx Ordered Nausea/Vomiting Control: Adequate, Prn Tx Ordered Complications Possibly Related to Anesthesia: None Noted (in sicu,on vent sedated)
[2017-05-23] MEDS: ALBUMIN 5% 250 ML IV PRN ×2 (12:30→13:11)
--- NOTE | 2017-05-23 12:38 | GOP ---
[f rep st] OPERATIVE REPORT DATE OF OPERATION: 05/23/2017 SURGEON: Vick Worley DO MECHANICAL SYSTEMS ENGINEER: Yousif Underwood PA-C. ANESTHESIOLOGIST: Iraida Sampson MD PREOPERATIVE DIAGNOSIS: Arteriosclerotic heart disease. POSTOPERATIVE DIAGNOSIS: Arteriosclerotic heart disease. PROCEDURE PERFORMED: 1. Coronary artery bypass grafting x5 with left internal mammary artery to the distal left anterior descending, saphenous vein graft to the diagonal, 1st obtuse marginal, 2nd obtuse marginal, and right coronary artery. 2. Ligation of left atrial appendage with AtriClip. 3. Endoscopic vein harvest from both legs by CRYSTAL Shin. FINDINGS: DESCRIPTION OF PROCEDURE: Patient was consented for coronary bypass grafting surgery. She had both carotids fixed prior to surgical intervention. She was brought to the operating room intubated and m onitoring lines were placed. She was prepped and draped in sterile classical manner. Sternotomy was performed. Transesophageal echo revealed no aortic insufficiency or valvular disease with good LV f unction. Sternotomy was performed. The mammary was harvested. The patient was heparinized and jo ann ulated. Bypass was begun. A cardioplegic arrest was obtained with antegrade cardioplegia, topical h ypothermia, and systemic cooling. All distal's were performed with the cross-clamp on. She, in fact , had nice size targets with the RCA measuring 3.0 mm, posterolateral branch was 2, lateral branch wa s 2.5, diagonal was 2.5, and LAD was 1.8. The conduits were excellent. The aorta was slightly dilat ed to 3.8 cm, but had good wall thickness and turgor. All proximal's and distal's were performed wit h a cross-clamp on. The cross-clamp was removed with suction on the ascending aortic vent. We also placed an AtriClip of 40 mm across the large left atrial appendage, which was free of thrombus on ROSALIO . Spontaneous cardiac activity was noted to resume. The patient was rewarmed and weaned from bypass . The heparin was reversed with protamine. The cannula was removed and oversewn. Two ventricular p acing wires and 2 pleural and 1 mediastinal drain were placed. Thymic fat and pericardium were close d. Chest was closed in standard fashion. Patient was returned to ICU in stable condition. /[id number]/MODL
[2017-05-23] MEDS: ceFAZolin 2 GM/DEXTROSE 100 ML IV SCH ×2 (14:00→21:39)
[2017-05-23 14:14] LABS: CALCULATED OXYGEN SATURATION 99 % (92-95); O2 CONCENTRATIION 100 % (0-100)
[2017-05-23] MEDS: fentaNYL 100 MCG/2 ML INJ IVP PRN ×2 (14:29→21:52)
[2017-05-23] MEDS ORDERED: NOREPINEPHRINE BITARTRATE 16 MG in NS 250 ML IV SCH (15:00)
[2017-05-23 15:20] LABS: BASE EXCESS -2.9 mEq/L (-2.5-2.5); BICARBONATE 24 mEq/L (22-26); MEASURED OXYGEN SATURATION 96 % (92-95); PCO2 52 mmHg (34-38); PO2 87 mmHg (65-75); TCO2 25 mEq/L (23-27)
[2017-05-23 15:22] LABS: CPAP YES; END TIDAL CO2 53; O2 CONCENTRATIION 40 % (0-100); P/F RATIO 218 RATIO; PATIENT RATE 19; PRESSURE SUPPORT 7
[2017-05-23] MEDS: SENNOSIDES/DOCUSATE SODIUM TAB PO SCH (19:54)
[2017-05-23] MEDS: MUPIROCIN 2% 22 GM OINT NS SCH (21:40)
[2017-05-23 22:31] LABS: HEMATOCRIT 28.7 % (38.0-47.0); HEMOGLOBIN 9.8 g/dL (12.6-16.3); MEAN CELL HEMOGLOBIN 30.5 pg (27.9-34.1); MEAN CELL HEMOGLOBIN CONCENTR. 34.1 g/dL (32.4-36.7); MEAN CELL VOLUME 89.4 fL (81.5-99.8); RED BLOOD CELL COUNT 3.21 10^6/uL (4.18-5.33)
[2017-05-24] MEDS: fentaNYL 100 MCG/2 ML INJ IVP PRN (03:18)
[2017-05-24 04:09] LABS: % IMMATURE GRANULYOCYTES 0.2 % (0.0-1.1); ABSOLUTE IMMATURE GRANULOCYTES 0.03 10^3/uL (0.00-0.10); ADD DIFF? NO; ADD MORPH? YES; ADD SCAN? NO; ATYPICAL LYMPHOCYTE FLAG 20 (0-99); FRAGMENT RBC FLAG 20 (0-99); HEMATOCRIT 28.2 % (38.0-47.0); HEMOGLOBIN 9.7 g/dL (12.6-16.3); LEFT SHIFT FLG 0 (0-99); LIPEMIA HEMOLYSIS FLAG 90 (0-99); MEAN CELL HEMOGLOBIN CONCENTR. 34.4 g/dL (32.4-36.7); MEAN CELL VOLUME 90.1 fL (81.5-99.8); MEAN PLATELET VOLUME 10.9 fL (8.7-11.7); PLATELET CLUMPS FLAG 0 (0-99); PLATELET COUNT 98 10^3/uL (150-400); RED BLOOD CELL COUNT 3.13 10^6/uL (4.18-5.33)
[2017-05-24 04:10] LABS: RED CELL DISTRIBUTION WIDTH 20.4 % (11.5-15.2)
[2017-05-24 04:24] LABS: ANION GAP 9 mEq/L (8-16); CALCIUM 8.6 mg/dL (8.5-10.4); CARBON DIOXIDE 26 mEq/l (22-31); CHLORIDE 111 mEq/L (97-110); CREATININE 0.6 mg/dL (0.6-1.0); GLOMERULAR FILTRATION RATE > 60; GLUCOSE 103 mg/dL (70-100); POTASSIUM 4.2 mEq/L (3.5-5.2); SODIUM 146 mEq/L (134-144)
[2017-05-24 04:43] LABS: ELLIPTOCYTES 1+; MACROCYTES 1+; PLATELET ESTIMATE DECREASED (ADEQ); POLYCHROMASIA 1+
[2017-05-24] MEDS: ceFAZolin 2 GM/DEXTROSE 100 ML IV SCH ×3 (05:01→21:43)
[2017-05-24] MEDS: HEPARIN 5,000 UNIT/0.5 ML SYR SC SCH ×3 (05:01→22:30)
--- NOTE | 2017-05-24 07:22 | SOAPPROG ---
DARINEL Progress Note Assessment/Plan: POD #1: CABG x 5 (CAICEDO-LAD, SVG-Dx, SVG-OM1, SVG-OM2, SVG-RCA), Ligation of left atrial appendage Hemodynamically stable in SR 80-90's with SBP 130-140's. Severe CAD s/p CABG x 5 - BB, ASA and statin for secondary prevention. - SCDs/heparin SQ for DVT prophylaxis. - Chest drains without airleak today. Blakes to bulbs. - Wrap and cap pacing wires. - Keep patient in ICU for today. Current tobacco abuse with COPD - Nebs prn. - Importance of smoking cessation emphasized to patient. Acute postop blood loss anemia - Stable H&H s/p 2U PRBC yesterday. Secondary thrombocytopenia d/t CPB - Stable with plt count 98. - Will follow. Renal - Function stable with normal renal lytes and adequate urine output. - Will d/c hussein today. Deconditioning s/p surgery - Encourage ambulation/IS. - PT/OT Subjective: Patient without complaints. Reports good pain control. Objective: Vital Signs Temp Pulse Resp BP Pulse Ox 38 C 93 19 136/70 H 100 05/24/17 07:00 05/24/17 07:00 05/24/17 07:00 05/24/17 07:00 05/24/17 07:00 Laboratory Results 05/24/17 04:00 05/24/17 04:00 05/23/17 05/24/17 05/25/17 05:59 05:59 04:59 Intake Total 2370 Output Total 2346 Balance 24 Physical Exam - Physical Exam General Appearance: WD/WN, alert, no apparent distress Respiratory: lungs clear, decreased breath sounds (bases) Cardiac/Chest: regular rate, rhythm (sternum stable) Abdomen: normal bowel sounds, non-tender, soft Skin: warm/dry Extremities: other (mild upper and lower extremity edema) Neuro/Psych: alert, normal mood/affect, oriented x 3 ICD10 Worksheet Patient Problems: Problems Problem Status Onset S/P CABG x 5 Acute CAD, multiple vessel Acute Carotid artery disease Acute Diabetes mellitus Acute CHF (NYHA class II, ACC/AHA stage C) Chronic Emphysema/COPD Chronic Ischemic cardiomyopathy Chronic Tobacco abuse Chronic
[2017-05-24] MEDS ORDERED: ASPIRIN 81 MG CHEWABLE TAB TUBE PRN (09:00)
[2017-05-24] MEDS: MUPIROCIN 2% 22 GM OINT NS SCH ×2 (09:37→21:42)
[2017-05-24] MEDS ORDERED: IPRATROPIUM/ALBUTEROL 3 ML DEYVIAL IH PRN (10:21)
--- NOTE | 2017-05-24 11:40 | ASMTCMCOM ---
CM Note CM Note Notes: Per Dr Worley, patient will need SNF upon discharge. Likely d/c date 05/28 - . I spoke with patient and her daughter in law Lyn about SNF after discharge. They are both amenable to it, since patient lives alone and is recovering from a CABG. They requested referrals to the [facility] and [facility]. I sent referrals and will await their response. Date Signed: 05/24/2017 11:39 AM Electronically Signed By:Rehana Sanabria RN
[2017-05-24] MEDS: ATORVASTATIN CALCIUM 40 MG TAB PO SCH (12:04)
[2017-05-24] MEDS: METOPROLOL TARTRATE 25 MG TAB PO SCH ×2 (12:06→21:43)
[2017-05-24] MEDS: ASPIRIN 81 MG CHEWABLE TAB PO SCH (12:06)
[2017-05-24] MEDS: PANTOPRAZOLE SODIUM 40 MG TAB PO SCH (12:07)
[2017-05-24 12:39] LABS: POTASSIUM 4.3 mEq/L (3.5-5.2)
[2017-05-24] MEDS: HYDROCODONE/APAP 5/325 TAB PO PRN ×3 (14:16→23:12)
[2017-05-24] MEDS: SENNOSIDES/DOCUSATE SODIUM TAB PO SCH ×2 (17:55→21:43)
[2017-05-25] MEDS: HYDROCODONE/APAP 5/325 TAB PO PRN ×2 (04:13→12:24)
[2017-05-25 04:29] LABS: % IMMATURE GRANULYOCYTES 0.6 % (0.0-1.1); ABSOLUTE IMMATURE GRANULOCYTES 0.07 10^3/uL (0.00-0.10); ADD DIFF? NO; ADD MORPH? NO; ADD SCAN? NO; ATYPICAL LYMPHOCYTE FLAG 0 (0-99); FRAGMENT RBC FLAG 20 (0-99); HEMOGLOBIN 8.6 g/dL (12.6-16.3); LEFT SHIFT FLG 0 (0-99); LIPEMIA HEMOLYSIS FLAG 80 (0-99); MEAN CELL HEMOGLOBIN 29.9 pg (27.9-34.1); MEAN CELL HEMOGLOBIN CONCENTR. 31.9 g/dL (32.4-36.7); MEAN CELL VOLUME 93.8 fL (81.5-99.8); MEAN PLATELET VOLUME 11.5 fL (8.7-11.7); PLATELET CLUMPS FLAG 0 (0-99); PLATELET COUNT 101 10^3/uL (150-400); RED BLOOD CELL COUNT 2.88 10^6/uL (4.18-5.33); RED CELL DISTRIBUTION WIDTH 19.9 % (11.5-15.2)
[2017-05-25 04:40] LABS: ANION GAP 9 mEq/L (8-16); CALCIUM 8.7 mg/dL (8.5-10.4); CARBON DIOXIDE 28 mEq/l (22-31); CHLORIDE 106 mEq/L (97-110); CREATININE 0.5 mg/dL (0.6-1.0); GLOMERULAR FILTRATION RATE > 60; GLUCOSE 124 mg/dL (70-100); POTASSIUM 4.2 mEq/L (3.5-5.2); SODIUM 143 mEq/L (134-144)
[2017-05-25] MEDS: HEPARIN 5,000 UNIT/0.5 ML SYR SC SCH ×3 (06:07→21:42)
--- NOTE | 2017-05-25 07:12 | SOAPPROG ---
SOAP Progress Note Assessment/Plan: POD #2: CABG x 5 (CAICEDO-LAD, SVG-Dx, SVG-OM1, SVG-OM2, SVG-RCA), Ligation of left atrial appendage Hemodynamically stable in SR 80-90's with SBP 110-130's. Severe CAD s/p CABG x 5 - BB, ASA and statin for secondary prevention. No ACEi to avoid hypotension. - SCDs/heparin SQ for DVT prophylaxis. - Chest tube drainage minimal. Will d/c drains today. - Pacing wires removed without difficulty today. - Transfer patient to SDU today. Current tobacco abuse with COPD - Nebs prn. - Importance of smoking cessation emphasized to patient. Acute postop blood loss anemia - H&H 8.6/27.0 (9.7/28.2) s/p 2U PRBC /. - Will start Iron today and follow. Secondary thrombocytopenia d/t CPB - Stable with plt count 101 (98). - Will resume SQ Heparin. Renal - Function stable with normal renal lytes and good urine output. Deconditioning s/p surgery - Encourage ambulation/IS. - PT/OT Subjective: Patient without complaints. Reports good pain control. Objective: Vital Signs Temp Pulse Resp BP Pulse Ox 37.2 C 96 18 124/75 H 98 05/25/17 04:00 05/25/17 06:00 05/25/17 06:00 05/25/17 06:00 05/25/17 06:00 Laboratory Results 05/25/17 04:15 05/25/17 04:15 05/24/17 05/25/17 05/26/17 06:59 05:59 05:59 Intake Total Output Total 280 Balance -280 Physical Exam - Physical Exam General Appearance: alert, no apparent distress Respiratory: lungs clear, normal breath sounds, decreased breath sounds (bases) Cardiac/Chest: regular rate, rhythm, other (sternum stable, sternotomy c/d/i) Abdomen: normal bowel sounds, non-tender, soft Skin: warm/dry Extremities: other (no lower extremity edema, bilat leg incisions c/d/i) Neuro/Psych: alert, normal mood/affect, oriented x 3 ICD10 Worksheet Patient Problems: Problems Problem Status Onset S/P CABG x 5 Acute CAD, multiple vessel Acute Carotid artery disease Acute Diabetes mellitus Acute CHF (NYHA class II, ACC/AHA stage C) Chronic Emphysema/COPD Chronic Ischemic cardiomyopathy Chronic Tobacco abuse Chronic
[2017-05-25] MEDS: MUPIROCIN 2% 22 GM OINT NS SCH (09:00)
[2017-05-25] MEDS: ASPIRIN 81 MG CHEWABLE TAB PO SCH (09:58)
[2017-05-25] MEDS: METOPROLOL TARTRATE 25 MG TAB PO SCH ×2 (09:58→21:42)
[2017-05-25] MEDS: SENNOSIDES/DOCUSATE SODIUM TAB PO SCH ×2 (09:58→21:41)
[2017-05-25] MEDS: PANTOPRAZOLE SODIUM 40 MG TAB PO SCH (09:58)
[2017-05-25] MEDS: ATORVASTATIN CALCIUM 40 MG TAB PO SCH (09:58)
[2017-05-25] MEDS: FERROUS SULFATE 325 MG TAB PO SCH ×2 (12:26→21:42)
--- NOTE | 2017-05-25 14:37 | GCON ---
[f rep st] CONSULTATION PULMONARY DISEASES CONSULTATION DATE OF CONSULTATION: 05/25/2017 HISTORY OF PRESENT ILLNESS: This patient is a 72-year-old female with a known history of coronary ar owen disease who underwent a multivessel coronary artery bypass grafting by Dr. Worley without much di fficulty. Postprocedure, however, she was slow to wake up with hypercapnic respiratory failure and r equired mechanical ventilation overnight. She was extubated, however, fairly quickly and was able to manage quite well. Her notes from this hospitalization suggest COPD, but her outpatient notes do no t suggest COPD, and there are no pulmonary function tests available. She has not been using any mete r dose inhalers as well, though she may still in fact carry the diagnosis since she was a long-term s moker. In any case, she has done well postoperatively and is progressing along as appropriately and is no longer short of breath and is oxygenating quite well. REVIEW OF SYSTEMS: Otherwise negative. PAST MEDICAL HISTORY: Includes: 1. Coronary artery disease. 2. Carotid artery disease, having undergone a recent carotid endarterectomy. 3. Congestive heart failure with an ejection fraction of 40% preoperatively. 4. Hypertension. 5. Pulmonary hypertension with an estimated PA pressure of 56 on an echo from [facility]. 6. Hyperlipidemia. 7. B12 deficiency. PAST SURGICAL HISTORY: Includes a remote and a recent carotid endarterectomy. MEDICATIONS: Include at this time: [place], DuoNeb p.r.n., aspirin, Lipitor, Dulcolax, fentanyl, hepa rin, insulin p.r.n., Reglan, Lopressor, morphine, Zofran, Protonix, Senokot. PHYSICAL EXAM: VITAL SIGNS: She was afebrile. She had a blood pressure of 122/70, heart rate of 91 , respirations 23, oxygen saturation 99% on 2 L. GENERAL: She was awake and alert, in no apparent d istress, and able to speak in full sentences without using accessory muscles for breathing. HEENT: Pupils equally round and reactive to light. Nonicteric and noninjected. Mucous membranes were moist without erythema or exudate. NECK: Supple without adenopathy or jugular vein distention. CHEST: Breath sounds were distant, but clear to auscultation bilaterally without wheezes, rubs or rales. Ch est wall incision was clean and dry without evidence of dehiscence. HEART: Regular rate and rhythm without murmurs, rubs, gallops. ABDOMEN: Soft, nontender, nondistended without hepatosplenomegaly. EXTREMITIES: No clubbing, cyanosis, or edema. NEUROLOGIC: Nonfocal, including cranial nerves, nano p tendon reflexes. SKIN: Warm and dry without evidence of rash. OBJECTIVE DATA: Includes a white count of 12.4, hematocrit 27, platelets of 101 and climbing. Basic metabolic panel was unremarkable. Calcium of 8.7. ASSESSMENT AND PLAN: 1. Coronary artery disease status post coronary artery bypass graft by Dr. Worley who is primarily ma naging this. She appears to have had a very good outcome without major complications. 2. Hypoxemia. This is primarily due to her underlying atelectasis, which is expected at this stage. I would simply encourage her to use incentive spirometry as needed. 3. Possible chronic obstructive pulmonary disease. She may have a diagnosis. I think that p.r.n. D uoNeb is certainly appropriate at this time, but I would not proceed with either systemic or inhaled steroids at this time. 4. Anemia. This is relatively stable. Expected blood loss after a major surgery, as is her platele ts as well. 5. I believe she is transferring out of the intensive care unit today. /[id number]/MODL
[2017-05-26 05:40] LABS: HEMOGLOBIN 7.8 g/dL (12.6-16.3); MEAN CELL HEMOGLOBIN 30.6 pg (27.9-34.1); MEAN CELL HEMOGLOBIN CONCENTR. 32.5 g/dL (32.4-36.7); MEAN CELL VOLUME 94.1 fL (81.5-99.8); RED BLOOD CELL COUNT 2.55 10^6/uL (4.18-5.33); RED CELL DISTRIBUTION WIDTH 18.3 % (11.5-15.2)
[2017-05-26 06:09] LABS: ANION GAP 8 mEq/L (8-16); CARBON DIOXIDE 30 mEq/l (22-31); CHLORIDE 103 mEq/L (97-110); CREATININE 0.4 mg/dL (0.6-1.0); GLOMERULAR FILTRATION RATE > 60; GLUCOSE 90 mg/dL (70-100); POTASSIUM 3.3 mEq/L (3.5-5.2); SODIUM 141 mEq/L (134-144)
--- NOTE | 2017-05-26 06:09 | SOAPPROG ---
SOAP Progress Note Assessment/Plan: POD #3: CABG x 5 (CAICEDO-LAD, SVG-Dx, SVG-OM1, SVG-OM2, SVG-RCA), Ligation of left atrial appendage Severe CAD s/p CABG x 5 - BB, ASA and statin for secondary prevention - SCDs/heparin SQ for DVT prophylaxis - Tubes and wires out Current tobacco abuse with COPD - Nebs prn. - Importance of smoking cessation emphasized to patient. Acute postop blood loss anemia with thrombocytopenia - H&H trending lower today although pt asymptomatic with good BP and renal function, will monitor - Platelets stable > 100 Disposition - Likely SNF in a day or two Subjective: No pain/SOB. No complaints. Objective: Vital Signs Temp Pulse Resp BP Pulse Ox 37.3 C 94 23 H 123/71 H 97 05/25/17 20:00 05/26/17 04:00 05/26/17 04:00 05/26/17 04:00 05/26/17 04:00 Laboratory Results 05/26/17 05:15 05/25/17 05/26/17 05/27/17 05:59 05:59 05:59 Intake Total 750 Output Total 1510 Balance -760 Physical Exam - Physical Exam General Appearance: WD/WN, alert, no apparent distress EENT: No scleral icterus (R), No scleral icterus (L) Neck: normal inspection Respiratory: No respiratory distress Cardiac/Chest: regular rate, rhythm Abdomen: non-tender, soft, No distended Skin: normal color, warm/dry Extremities: No pedal edema Neuro/Psych: no motor/sensory deficits, alert, normal mood/affect, oriented x 3 ICD10 Worksheet Patient Problems: Problems Problem Status Onset S/P CABG x 5 Acute CAD, multiple vessel Acute Carotid artery disease Acute Diabetes mellitus Acute CHF (NYHA class II, ACC/AHA stage C) Chronic Emphysema/COPD Chronic Ischemic cardiomyopathy Chronic Tobacco abuse Chronic
[2017-05-26] MEDS: HEPARIN 5,000 UNIT/0.5 ML SYR SC SCH ×3 (06:13→21:51)
[2017-05-26] MEDS ORDERED: PROTOCOL POTASSIUM 1 DOSE MISC PRN (06:15)
[2017-05-26] MEDS: POTASSIUM Cl (KCl) 50 ML IV SCH ×2 (06:30→06:36)
[2017-05-26] MEDS ORDERED: POTASSIUM Cl (KCl) 20 MEQ in NS 50 ML IV ONE (06:30)
[2017-05-26] MEDS: ATORVASTATIN CALCIUM 40 MG TAB PO SCH (08:29)
[2017-05-26] MEDS: SENNOSIDES/DOCUSATE SODIUM TAB PO SCH ×2 (08:29→21:51)
[2017-05-26] MEDS: FERROUS SULFATE 325 MG TAB PO SCH ×2 (08:30→21:51)
[2017-05-26] MEDS: PANTOPRAZOLE SODIUM 40 MG TAB PO SCH (08:30)
[2017-05-26] MEDS: ASPIRIN 81 MG CHEWABLE TAB PO SCH (08:30)
[2017-05-26] MEDS: METOPROLOL TARTRATE 25 MG TAB PO SCH ×2 (08:30→21:51)
[2017-05-26 19:28] LABS: POTASSIUM 3.3 mEq/L (3.5-5.2)
[2017-05-26] MEDS ORDERED: POTASSIUM CL 10 MEQ TAB PO ONE (19:50)
[2017-05-26] MEDS ORDERED: POTASSIUM Cl (KCl) 50 ML IV ONE (20:01)
[2017-05-27 05:28] LABS: HEMATOCRIT 24.2 % (38.0-47.0); HEMOGLOBIN 7.8 g/dL (12.6-16.3); MEAN CELL HEMOGLOBIN 30.8 pg (27.9-34.1); MEAN CELL HEMOGLOBIN CONCENTR. 32.2 g/dL (32.4-36.7); MEAN CELL VOLUME 95.7 fL (81.5-99.8); RED BLOOD CELL COUNT 2.53 10^6/uL (4.18-5.33); RED CELL DISTRIBUTION WIDTH 17.3 % (11.5-15.2)
[2017-05-27 05:43] LABS: ANION GAP 5 mEq/L (8-16); CALCIUM 8.3 mg/dL (8.5-10.4); CARBON DIOXIDE 34 mEq/l (22-31); CHLORIDE 105 mEq/L (97-110); CREATININE 0.4 mg/dL (0.6-1.0); GLOMERULAR FILTRATION RATE > 60; GLUCOSE 95 mg/dL (70-100); POTASSIUM 3.9 mEq/L (3.5-5.2); SODIUM 144 mEq/L (134-144)
[2017-05-27] MEDS: HEPARIN 5,000 UNIT/0.5 ML SYR SC SCH ×3 (06:07→20:20)
--- NOTE | 2017-05-27 06:29 | SOAPPROG ---
SOAP Progress Note Assessment/Plan: POD #4: CABG x 5 (CAICEDO-LAD, SVG-Dx, SVG-OM1, SVG-OM2, SVG-RCA), Ligation of left atrial appendage Severe CAD s/p CABG x 5 - BB, ASA and statin for secondary prevention - SCDs/heparin SQ for DVT prophylaxis - Tubes and wires out Current tobacco abuse with COPD - Nebs prn - Importance of smoking cessation emphasized to patient Acute postop blood loss anemia with thrombocytopenia - H&H stable - Platelets stable > 100 Disposition - SNF on Friday Subjective: Sleeping. Objective: Vital Signs Temp Pulse Resp BP Pulse Ox 36.8 C 96 22 H 116/67 94 05/26/17 20:00 05/27/17 04:00 05/27/17 04:00 05/27/17 04:00 05/27/17 04:00 Laboratory Results 05/27/17 05:10 05/27/17 05:10 05/26/17 05/27/17 05/28/17 05:59 05:59 05:59 Intake Total 950 806.8 Output Total 1510 Balance -560 806.8 Physical Exam - Physical Exam General Appearance: WD/WN, alert, no apparent distress EENT: scleral icterus (R) Neck: normal inspection Respiratory: No respiratory distress Cardiac/Chest: regular rate, rhythm Abdomen: No distended Skin: normal color ICD10 Worksheet Patient Problems: Problems Problem Status Onset S/P CABG x 5 Acute CAD, multiple vessel Acute Carotid artery disease Acute Diabetes mellitus Acute CHF (NYHA class II, ACC/AHA stage C) Chronic Emphysema/COPD Chronic Ischemic cardiomyopathy Chronic Tobacco abuse Chronic
[2017-05-27] MEDS ORDERED: POTASSIUM CL 10 MEQ TAB PO ONE (07:42)
[2017-05-27] MEDS: METOPROLOL TARTRATE 25 MG TAB PO SCH ×2 (08:52→20:21)
[2017-05-27] MEDS: ATORVASTATIN CALCIUM 40 MG TAB PO SCH (08:52)
[2017-05-27] MEDS: ASPIRIN 81 MG CHEWABLE TAB PO SCH (08:52)
[2017-05-27] MEDS: PANTOPRAZOLE SODIUM 40 MG TAB PO SCH (08:52)
[2017-05-27] MEDS: FERROUS SULFATE 325 MG TAB PO SCH ×2 (08:53→20:22)
[2017-05-27] MEDS: SENNOSIDES/DOCUSATE SODIUM TAB PO SCH ×2 (08:53→20:21)
[2017-05-27 17:20] LABS: POTASSIUM 3.6 mEq/L (3.5-5.2)
--- NOTE | 2017-05-27 18:07 | ASMTCMCOM ---
CM Note CM Note Notes: RN reports that patient will be discharged Friday. Pasrr completed, faxed to [facility] and in the chart. Date Signed: 05/27/2017 06:06 PM Electronically Signed By:Chikis Hutton LCSW
[2017-05-27] MEDS ORDERED: POTASSIUM CL 20 MEQ TAB PO ONE (19:53)
[2017-05-28] MEDS: HEPARIN 5,000 UNIT/0.5 ML SYR SC SCH (05:51)
[2017-05-28 05:57] VITALS: PULSE 101
[2017-05-28 07:13] VITALS: BP 155/91; RESP 24; TEMP 98.4; O2SAT 97
--- NOTE | 2017-05-28 07:41 | SOAPPROG ---
SOAP Progress Note Assessment/Plan: POD #5: CABG x 5 (CAICEDO-LAD, SVG-Dx, SVG-OM1, SVG-OM2, SVG-RCA), Ligation of left atrial appendage Severe CAD s/p CABG x 5 - BB, ASA and statin for secondary prevention - SCDs/heparin SQ for DVT prophylaxis - Tubes and wires out Current tobacco abuse with COPD - Nebs prn - Importance of smoking cessation emphasized to patient Acute postop blood loss anemia with thrombocytopenia - H&H stable - Platelets stable > 100 Disposition - SNF today Subjective: No complaints. Has more energy today. Ready to be discharged. Objective: Vital Signs Temp Pulse Resp BP Pulse Ox 36.9 C 101 H 24 H 155/91 H 97 05/28/17 07:10 05/28/17 07:10 05/28/17 07:10 05/28/17 07:10 05/28/17 07:10 Laboratory Results 05/27/17 05:10 05/28/17 05:45 05/27/17 05/28/17 05/29/17 05:59 05:59 05:59 Intake Total 806.8 1250 Balance 806.8 1250 Physical Exam - Physical Exam General Appearance: WD/WN, alert, no apparent distress EENT: No scleral icterus (R), No scleral icterus (L) Neck: normal inspection Respiratory: No respiratory distress Cardiac/Chest: regular rate, rhythm Abdomen: non-tender, soft, No distended Skin: normal color, warm/dry Extremities: No pedal edema Neuro/Psych: no motor/sensory deficits, alert, normal mood/affect, oriented x 3 ICD10 Worksheet Patient Problems: Problems Problem Status Onset S/P CABG x 5 Acute CAD, multiple vessel Acute Carotid artery disease Acute Diabetes mellitus Acute CHF (NYHA class II, ACC/AHA stage C) Chronic Emphysema/COPD Chronic Ischemic cardiomyopathy Chronic Tobacco abuse Chronic
[2017-05-28] MEDS ORDERED: METOPROLOL TARTRATE 25 MG TAB PO SCH (08:00)
[2017-05-28] MEDS: PANTOPRAZOLE SODIUM 40 MG TAB PO SCH (09:11)
[2017-05-28] MEDS: ATORVASTATIN CALCIUM 40 MG TAB PO SCH (09:11)
[2017-05-28] MEDS: SENNOSIDES/DOCUSATE SODIUM TAB PO SCH (09:11)
[2017-05-28] MEDS: ASPIRIN 81 MG CHEWABLE TAB PO SCH (09:12)
[2017-05-28] MEDS: FERROUS SULFATE 325 MG TAB PO SCH (09:12)
--- NOTE | 2017-05-28 10:04 | PDIAF ---
- Diagnosis Diagnosis: s/p CABGx5 Code Status: Full Code - Medication Management Discharge Medications: Medications to Continue on Transfer Multivitamins [Multivitamin (*)] 1 each PO DAILY 04/01/17 [Last Taken 05/16/17] [place]-3 Fatty Acids [Fish Oil 1000 mg (*)] 1,000 mg PO DAILY 04/01/17 [Last Taken 05/16/17] Ascorbic Acid [Vitamin C 500 mg (*)] 1,000 mg PO DAILY 04/28/17 [Last Taken ] Atorvastatin Calcium [Lipitor 40 mg (*)] 40 mg PO DAILY 04/28/17 [Last Taken ] Cholecalciferol Vit D3 [Vitamin D3 (*)] 1,000 units PO DAILY 04/28/17 [Last Taken 05/16/17] Cyanocobalamin [Vitamin B12 (*)] 1,000 mcg PO DAILY 04/28/17 [Last Taken ] Herbals/Supplements -Info Only 1 ea PO DAILY 04/28/17 [Last Taken 05/16/17] Acetaminophen [Tylenol 325mg (*)] 325 - 650 mg PO Q4HRS PRN tab 05/28/17 [Last Taken Unknown] Aspirin [Aspirin 81mg (*)] 81 mg PO DAILY tab.chew 05/28/17 [Last Taken Unknown ] Ferrous Sulfate [Ferrous Sulf 325 MG (*)] 325 mg PO BID tab 05/28/17 [Last Taken Unknown] Metoprolol Tartrate [Lopressor 25 mg (*)] 25 mg PO BID tab 05/28/17 [Last Taken Unknown] Sennosides/Docusate Sodium [Senokot-S] 1 - 2 tab PO BID PRN tab 05/28/17 [Last Taken Unknown] Discharge Medications: Refer to the Discharge Home Medication list for PRN reason. PICC Care - Routine: N/A - Orders Services needed: Registered Nurse, Certified Interstate Planner, Master Building Inspector , Physical Therapy, Occupational Therapy Isolation Type: None Oxygen: 2L nasal cannula Diet Recommendation: cardiac -low fat low salt, fluid restriction (use comment for amount) (2 liters per day) Diet Texture: Regular Texture Diet, Thin Liquids, Meds Whole w/Liquids Weigh Patient: daily Pina: No Wound Care Instructions: Cleanse wounds once daily with soap and water. Avoid immersion (pool, hot tub, bath) until scabs off. Ok to leave all wounds open to air. Avoid creams or ointments until scabs fall off. Activity/Weight Bearing Restrictions: Sternal precautions x 4 weeks from surgery. Avoid lifting > 10lbs with an outstretched arm. Avoid push/pull activities. No driving until cleared by surgery. Elevate low legs at rest. Avoid prolonged standing or dangling. Additional: Log daily vital signs once home: weight, heart rate, blood pressure , and pulse oximetry if on oxygen. Call [facility] for overnight weight gain > 2lbs, weekly gain > 5lbs or worsening leg swelling. Call [facility] for resting heart rate > 120 OR for systolic blood pressure consistently < 90 or > 160. Target oxygen saturation > 89%. - Labs/Radiology Imaging Orders: CXR done at [facility] day follow-up appointment - Follow Up Care Current Providers and Referrals: Vick Worley DO [Doctor of Osteopathy] - 06/03/17 11:30 am NONE *PRIMARY CARE P,. [Primary Care Provider] -
--- NOTE | 2017-05-28 11:36 | PDDCSUM ---
Discharge Summary Discharge Summary: ADMISSION DATE: 05/23/17 DISCHARGE DATE: 05/28/17 ADMISSION DX: 1. Severe CAD 2. COPD with active tobacco abuse DISCHARGE DX: 1. Severe CAD 2. COPD with active tobacco abuse 3. Acute blood loss anemia PROCEDURES 05/23/17, Vick Worley: 1. CABGx5 (CAICEDO-LAD, SVG-Diag, SVG-OM1, SVG-OM2, SVG-RCA), [facility] COURSE BY PROBLEM LIST 1. Severe CAD - s/p CABGx5. Beta-pricilla, aspirin, and statin prescribed for secondary prevention. 2. COPD with active tobacco abuse - nicotine patch declined. Respiratory status stable without the need for inhalers. 3. Acute blood loss anemia - stable s/p 2U PRBCs CONDITION Good DISPOSITION Hiren Boone ACTIVITY Pt was instructed on sternal precautions, activity limitations, and which problems to call [facility] with. Please see Discharge Plan and Interagency Discharge Form in chart for specifics. DISCHARGE MEDICATIONS 1. Multivitamins [Multivitamin (*)] 1 each PO DAILY 2. [place]-3 Fatty Acids [Fish Oil 1000 mg (*)] 1,000 mg PO DAILY 3. Ascorbic Acid [Vitamin C 500 mg (*)] 1,000 mg PO DAILY 4. Atorvastatin Calcium [Lipitor 40 mg (*)] 40 mg PO DAILY 5. Cholecalciferol Vit D3 [Vitamin D3 (*)] 1,000 units PO DAILY 6. Cyanocobalamin [Vitamin B12 (*)] 1,000 mcg PO DAILY 7. Herbals/Supplements -Info Only 1 ea PO DAILY 8. Acetaminophen [Tylenol 325mg (*)] 325 - 650 mg PO Q4HRS PRN 9. Aspirin [Aspirin 81mg (*)] 81 mg PO DAILY 10. Ferrous Sulfate [Ferrous Sulf 325 MG (*)] 325 mg PO BID 11. Metoprolol Tartrate [Lopressor 25 mg (*)] 25 mg PO BID 12. Sennosides/Docusate Sodium [Senokot-S] 1 - 2 tab PO BID PRN PENDING STUDIES/LABS 1. CXR prior to surgical follow-up F/U APPOINTMENTS 1. Vick Worley - 06/03/17, 11:30 AM
--- NOTE | 2017-05-28 12:25 | ASMTCMCOM ---
CM Note CM Note Notes: Spoke with [facility] and they have patient's bed ready. Faxed d/c summaries. Transportation arranged by [facility] and merchandise pickup/receiving associate time will be 1:00 P.M. Informed them she will need O2 during transport - 2L. Report number given to Kt, patient's nurse. D/C today. Date Signed: 05/28/2017 12:24 PM Electronically Signed By:Eveline Walsh LCSW
--- NOTE | 2017-05-29 16:38 | ASDISCHSUM ---
Discharge Information Plan Status:SNF Medically Cleared to Leave:05/27/2017 Discharge Date:05/28/2017 01:00 PM CM D/C Disposition:Snf Facility ADT D/C Disposition:Snf Facility Projected Discharge Date:05/28/2017 11:00 AM Transportation at D/C:Wheelchair Van Discharge Delay Reason: Follow-Up Date:05/28/2017 11:00 AM Discharge Slot: Final Diagnosis:CAD Placement Information Referral Type:*Senior Living/SNF Referral ID:[id number] Provider Name:[facility] Address 1:[address] Address 2: City:[place] Selection Factors: State:[place] Patient Contact Information Contact Name:ELLY Relationship:Son Address: Work Phone: City: [facility] Phone: [facility]/Zip Code: Email: Financial Information Financial Class: Primary Plan Desc:MEDICARE INPATIENT Primary Plan Number:[id number] Secondary Plan Desc: Secondary Plan Number: Assessment Information [facility] CM Progress Note CM Note CM Note Notes: Per Dr Worley, patient will need SNF upon discharge. Likely d/c date 05/28 - . I spoke with patient and her daughter in law Lyn about SNF after discharge. They are both amenable to it, since patient lives alone and is recovering from a CABG. They requested referrals to the [facility]. I sent referrals and will await their response. Date Signed: 05/24/2017 11:39 AM Electronically Signed By:Rehana Sanabria RN [facility] CM Progress Note CM Note CM Note Notes: RN reports that patient will be discharged Friday. Pasrr completed, faxed to [facility] and in the chart. Date Signed: 05/27/2017 06:06 PM Electronically Signed By:Chikis Hutton LCSW [facility] CM Progress Note CM Note CM Note Notes: Spoke with [facility] and they have patient's bed ready. Faxed d/c summaries. Transportation arranged by [facility] and cloth picker time will be 1:00 P.M. Informed them she will need O2 during transport - 2L. Report number given to Kt patient's nurse. D/C today. Date Signed: 05/28/2017 12:24 PM Electronically Signed By:Eveline Walsh LCSW Intervention Information Intervention Type:*IM-Signed Date of Service:05/28/2017 12:07 PM Patient Type:Inpatient Staff Member:Kandy Lopez Hours: Discipline: Severity: Comment:
--- NOTE | 2017-06-02 10:13 | PQFORM ---
PHYSICIAN QUERY FORM Needs Your Response This query form is being sent to you to assure this patient record is coded properly. Please respond to the question below: CLINICAL MATERIAL HANDLER QUESTION: Dr Brunilda Wray's Consult documents that the patient was slow to wake up with HyperCapnic Respiratory Failure and required overnight mech ventilation- However this is not documented on the Discharge Summary. Do you agree with this Diagnosis? ___x YES ___ NO ___ Other (Please Specify ) ___ Unable to Determine Thank you Kacie WARREN Coil Wrapper INSTRUCTIONS FOR RESPONSE: Answer question by clicking on the "Edit Document" button. Move cursor to area below the stars. When complete, hit "Save." Click on the "Sign" button, then click "Sign" again. Type in your PIN and hit "Enter." MTDD
== END 2017-05-28 13:00 | DRG 235 ==
LOC: F3N 05:39 → F2N 09:44
PROVIDERS: ADMIT Thoracic Surgery (Cardiothoracic Vascular Surgery); ATTEND Thoracic Surgery (Cardiothoracic Vascular Surgery)
PROC: 06BQ4ZZ Excision of Left Saphenous Vein, Percutaneous Endoscopic Approach (ICD-10-PCS; principal; 2017-05-23 07:15)
PROC: 06BP4ZZ Excision of Right Saphenous Vein, Percutaneous Endoscopic Approach (ICD-10-PCS; principal; 2017-05-23 07:15)
PROC: 021309W Bypass Coronary Artery, Four or More Arteries from Aorta with Autologous Venous Tissue, Open Approach (ICD-10-PCS; principal; 2017-05-23 07:15)
PROC: 02L70CK Occlusion of Left Atrial Appendage with Extraluminal Device, Open Approach (ICD-10-PCS; principal; 2017-05-23 07:15)
PROC: 30233N1 Transfusion of Nonautologous Red Blood Cells into Peripheral Vein, Percutaneous Approach (ICD-10-PCS; principal; 2017-05-23 07:15)
PROC: 02100Z9 Bypass Coronary Artery, One Artery from Left Internal Mammary, Open Approach (ICD-10-PCS; principal; 2017-05-23 07:15)
PROC: 5A1221Z Performance of Cardiac Output, Continuous (ICD-10-PCS; principal; 2017-05-23 07:15)
DX: I25.10 Atherosclerotic heart disease of native coronary artery without angina pectoris (principal); J96.02 Acute respiratory failure with hypercapnia; D62 Acute posthemorrhagic anemia; D69.59 Other secondary thrombocytopenia; J44.9 Chronic obstructive pulmonary disease, unspecified; I11.0 Hypertensive heart disease with heart failure; I50.9 Heart failure, unspecified; E78.5 Hyperlipidemia, unspecified; E53.8 Deficiency of other specified B group vitamins; F17.210 Nicotine dependence, cigarettes, uncomplicated
CPT/HCPCS: 82947-QW; 97110-GP; 97116-GP; 97162-GP; 97166-GO; 97530-GO; 97530-GP; 97535-GO; G8978-GP-CJ; G8978-GP-CL; G8979-GP-CJ; G8980-GP-CJ; G8987-GO-CL; G8988-GO-CJ; J0153; J0282; J0690; J1265; J1644; J1815; J2001; J2150; J2250; J2260; J2370; J2440; J2704; J2720; J2930; J3010; J7060; P9016; P9041

== ENCOUNTER → 2017-06-03 | Outpatient (CLI) | payer OTHER | LOC: FIMAGING 10:25 | PROVIDERS: ATTEND Thoracic Surgery (Cardiothoracic Vascular Surgery) | DX: J90 Pleural effusion, not elsewhere classified (principal); Z95.1 Presence of aortocoronary bypass graft ==

== ENCOUNTER → 2017-06-18 | Outpatient (CLI) | payer OTHER | LOC: FIMAGING 13:08 | PROVIDERS: ATTEND Thoracic Surgery (Cardiothoracic Vascular Surgery) | DX: J90 Pleural effusion, not elsewhere classified (principal); J98.11 Atelectasis; I51.7 Cardiomegaly; R91.1 Solitary pulmonary nodule ==

== ENCOUNTER → 2018-07-23 | Outpatient (CLI) | payer OTHER | LOC: BHLMT 13:30 | PROVIDERS: ATTEND Nurse Practitioner Family | DX: I25.10 Atherosclerotic heart disease of native coronary artery without angina pectoris (principal); I10 Essential (primary) hypertension; E78.5 Hyperlipidemia, unspecified; I77.9 Disorder of arteries and arterioles, unspecified; Z72.0 Tobacco use; Z95.1 Presence of aortocoronary bypass graft | CPT/HCPCS: 93005-PO ==

== ENCOUNTER → 2018-09-03 | Outpatient (CLI) | payer OTHER | LOC: BHLMT 14:45 | PROVIDERS: ATTEND Internal Medicine Interventional Cardiology | DX: I25.10 Atherosclerotic heart disease of native coronary artery without angina pectoris (principal) | CPT/HCPCS: 93306-PO ==

== ENCOUNTER → 2018-10-02 | Outpatient (CLI) | payer OTHER | LOC: BHLMT 14:00 | PROVIDERS: ATTEND Internal Medicine Cardiovascular Disease | DX: I25.10 Atherosclerotic heart disease of native coronary artery without angina pectoris (principal) ==